=== PATIENT | male | born 1965 | race Hispanic/Latino ===

== ENCOUNTER 2017-12-12 10:32 | Day surgery (SDC) | payer OTHER ==
[~2017-12-12 10:32] MED LIST: NACL 0.9% 1000 ML 1,000 ML IV SCH
--- NOTE | 2017-12-12 12:37 | Anesthesia Day of Surgery ---
Anesthesia Day of Surgery - Day of Surgery Patient Examined: Yes Patient H&P Reviewed: Yes Patient is NPO: Yes
--- NOTE | 2017-12-12 12:37 | Anesthesia Consultation ---
Anesthesia Consult and Med Hx Date of service: 12/12/17 - Airway Anesthetic Teeth Evaluation: Poor ROM Head & Neck: Adequate Mental/Hyoid Distance: Adequate Mallampati Class: Class I Intubation Access Assessment: Good - Pulmonary Exam CTA: Yes - Cardiac Exam Cardiac Exam: RRR - Pre-Operative Health Status ASA Pre-Surgery Classification: ASA2 Proposed Anesthetic Plan: General - Pulmonary Hx Smoking: (DIPPED [id number]) - Cardiovascular System Hx Hypertension: Yes - Central Nervous System Hx Back Pain: Yes Hx Psychiatric Problems: No - Endocrine Hx Non-Insulin Dependent Diabetes: Yes - Other Systems Hx Cancer: No - Additional Comments Anesthesia Medical History Comments: NAC
[2017-12-12] MEDS ORDERED: DIPRIVAN 10 MG/ML IV ONE ×2 (12:40)
--- NOTE | 2017-12-12 13:22 | Operative Report ---
Operative Report Operative Report: Date of procedure: 12/12/2017 Procedure: Colonoscopy with multiple hot biopsy polypectomies.. Attending physician: River Jerome MD Snow Removing Supervisor: River Jerome MD Indication: Patient is a 51-year-old male who presents for screening colonoscopy. A colonoscopy service to evaluate patient so that treatment may be directed based on the findings. Consent: Informed consent was obtained after advising the patient and family regarding nature of this procedure, its indications, potential benefits as well as possible complications including but not limited to bleeding perforation and adverse reaction to medication, infection as well as other cardiopulmonary complications. An informed written and verbal consent was then obtained after due opportunity was provided for questions and answers. Monitoring: Patient was monitored continuously with pulse oximetry and electrocardiographic recordings as well as blood pressure recordings. Vital signs remained stable throughout this procedure with no untoward events. Preoperative assessment: Patient was assessed immediately prior to this procedure for capacity to tolerate monitored anesthesia care and moderate sedation as well as general anesthesia. Patient's ASA classification is 2, Mallampati class is 2, Hyomental distance is 3. Instrument: [employer] video colonoscope Medications: Propofol given intravenously in divided doses. For details please refer to anesthesia records. Description of procedure: Patient was placed in the left lateral decubitus position after achieving sedation, a digital rectal examination was performed following which the colonoscope was introduced into the anal verge and advanced to the cecum which was identified by the cecal valve, the appendiceal orifice, as well as by the cecal strap and direct transillumination. The colonoscope was subsequently withdrawn with careful inspection of all mucosal surfaces. Patient tolerated this procedure well and was subsequently taken to the recovery room. The following findings were noted. Findings: Patient had diminutive diverticula involving the sigmoid and descending colon. In the sigmoid colon, patient had 2 diminutive flat polyps which were removed by hot biopsy polypectomy and retrieved. In the rectum, there was another diminutive flat polyp which was again removed by hot biopsy polypectomy and retrieved. The rest of the colon to the cecum was normal. On the retroflex view at the anal verge, patient had internal hemorrhoids. Impression: Diminutive sigmoid colon polyp status post hot biopsy polypectomy Diminutive rectal polyp status post hot biopsy polypectomy Diminutive diverticula of the colon. Internal hemorrhoids. Plan: Follow pathology report High-fiber diet. Repeat colonoscopy in 5 years if the polyps are identified adenomatous.
--- NOTE | 2017-12-12 13:23 | Discharge Summary ---
Short Stay Discharge Plan Activity: advance as tolerated Weight Bearing Status: Weight Bear as Tolerated Diet: regular Follow up with: JAMAL SANCHEZ MD [Primary Care Provider] - 7 Days
[2017-12-12 13:28] VITALS: BP 117/69
--- NOTE | 2017-12-12 14:25 | Post Anesthesia Evaluation ---
- Post Anesthesia Evaluation Patient Participated: Yes Airway Patent: Yes Stable Respiratory Function: Yes Nausea/Vomiting: No Temp > 96.8F: Yes Pain Manageable: Yes Adequeate Hydration: Yes Anesthesia Complications: No
== END 2017-12-12 10:33 | disposition home or self-care (01) ==
LOC: GIO 10:32
PROVIDERS: ATTEND Internal Medicine Gastroenterology
DX: Z12.11 Encounter for screening for malignant neoplasm of colon (principal); K62.1 Rectal polyp; D12.5 Benign neoplasm of sigmoid colon; K57.30 Diverticulosis of large intestine without perforation or abscess without bleeding; K64.8 Other hemorrhoids; Z79.899 Other long term (current) drug therapy
CPT/HCPCS: 45384; 82962; 88305; J2704; J7030